=== PATIENT | female | born 1975 | race Caucasian/White ===

== ENCOUNTER 2017-02-25 05:32 | Observation (INO) | payer BC ==
[~2017-02-25] VITALS: Ht 165.1 cm; Wt 58.5 kg
--- NOTE | ~2017-02-25 | OR ---
ADMIT: 02/25/2017 RM/LOC: 630 [facility] MR#: [id number] [address] [address] OPAL MCALLISTER [facility] [place] [address] Operative/Delivery Room Report SEX: F AGE: 41 : 1975 SURGERY DATE: 02/25/2017 SURGEON: Whitney Perdomo MD PREOPERATIVE DIAGNOSES: 1. Menorrhagia. 2. Anemia. 3. Uterine fibroids. POSTOPERATIVE DIAGNOSES: 1. Menorrhagia. 2. Anemia. 3. Uterine fibroids. PROCEDURE: Total laparoscopic hysterectomy, bilateral salpingectomy, and cystoscopy. DENTAL OFFICE MANAGER: Suzy Moy MD. ANESTHESIA: General endotracheal. COMPLICATIONS: None. ESTIMATED BLOOD LOSS: 100 mL. FLUIDS: Crystalloid. INDICATIONS: This is a 41-year-old female, 2, para 2, who was seen and evaluated in the office secondary to complaints of heavy periods and anemia for several years. We did review treatment options, and she did elect to proceed with definitive surgical management in the form of hysterectomy with bilateral salpingectomy. The risks, benefits, and alternatives were discussed with the patient prior to proceeding, and she agreed to proceed. FINDINGS: Normal-appearing uterus, tubes, and ovaries. Normal-appearing small and large bowel, normal-appearing appendix, normal-appearing liver edge. The gallbladder was not seen. PROCEDURE IN DETAIL: The patient was properly identified. Informed consent was obtained. She was then taken to the operating room, where general anesthesia was established. She was then placed in the dorsal lithotomy position and prepped and draped in the usual sterile fashion. A Latham catheter was inserted in the bladder. A bivalve speculum was used to visualize the cervix. The cervix was grasped with a single-tooth tenaculum. The cervix was then dilated to allow the Lab21are uterine manipulator to be advanced to the uterine fundus. The VCare was placed without any difficulty. The tenaculum and speculum were removed, and the cup of the VCare was then advanced up and around the cervix. Attention was then turned to the patient's abdomen. Marcaine 0.25% was injected at the umbilicus. A 5 mm skin incision ADMIT: 02/25/2017 RM/LOC: 630 [facility] MR#: [id number] [address] [place], [place] [address] [id number] [place] [address] Operative/Delivery Room Report SEX: F AGE: 41 : 1975 was made. The Veress needle was then advanced while tenting the abdominal wall. The opening intraabdominal pressure was noted to be 2 mmHg. The abdomen was then insufflated. The Veress needle was removed. A 5 mm trocar was then advanced while tenting the abdominal wall. Intraabdominal placement was confirmed with the laparoscope. The patient was placed in Trendelenburg and a second 5 mm trocar was placed in the left lower quadrant. This was done under direct visualization without any difficulty. A third 5 mm trocar was then placed in the right lower quadrant under direct visualization without any difficulty. The right fallopian tube was grasped. Using the THUNDERBEAT instrument, it was sealed and transected from its attachments. The utero- ovarian ligament was then sealed and transected followed by the round ligament. The anterior leaf of the broad ligament was then opened towards the midline creating a bladder flap. The posterior leaf of the broad ligament was then opened posteriorly. At this time, the uterine artery was identified and sealed. Attention was then turned to the patient's left side. The fallopian tube was then sealed and transected from its attachments followed by the utero- ovarian ligament and the round ligament. The anterior leaf of the broad ligament was then opened towards the midline. The posterior leaf of the broad ligament was then opened posteriorly. Uterine artery was identified, sealed and transected. At this time, attention was turned back to the right side. The right uterine artery was then sealed and transected. The tissues around the cervix were then thinned. The posterior cul-de-sac was then entered. The VCare manipulator was identified, and the incision was then carried circumferentially around the cervix. The uterus, cervix, and bilateral tubes were then removed from the vagina. A wet laparotomy sponge placed within a sterile glove was placed in the vagina to help maintain pneumoperitoneum. The vaginal cuff was then closed with an 0 Vicryl Quill suture. The pelvis was then copiously irrigated. All of the pedicles were noted to be hemostatic. The right lower quadrant trocar which was a 5 mm did need to be replaced with a 12 mm port to allow us to use the Quill suture. The fascia from this port was closed with a single stitch of 0 Vicryl. The other trocars were removed. The skin incisions were closed with 3-0 Vicryl. Steri-Strips and OpSite were placed. At this time, the Latham catheter was removed from the bladder. The cystoscope was advanced into the bladder. The bladder was noted to be intact. Both ureters were identified and noted to be effluxing clear yellow urine. The bladder was then drained, and the cystoscope was removed. The patient tolerated the procedure well. Sponge, lap, needle, and instrument counts were correct. The patient was taken to the recovery room in stable condition. Whitney Perdomo MD/ matt JOB #: [id number] CC: Whitney Perdomo, Attending Physician FAMILY PHYSICIAN, Family Physician
--- NOTE | 2017-02-26 06:08 | NUR ---
4412- LAB CALLED. NOTIFIED NURSE PT HGB 6.0, WAS 7.3 ON ADMIT YESTERDAY. PT'S VITAL SIGNS- T 98.0, P 71, R 16, BP 96/59 (71), O2 97%. PT REPORTS DIZZINESS, LIGHTHEADED, TIRED, AND WEAKNESS. DR. JOHNSON NOTIFIED. NEW ORDERS RECEIVED.
[2017-02-28] MEDS ORDERED: PERCOCET 5 DPS1 TAB PO (12:12)
[2017-02-28] MEDS ORDERED: MOTRIN-DPS800 MG PO (12:12)
[2017-02-28] MEDS ORDERED: IRON325 M1 PO (12:13)
--- NOTE | 2017-03-28 12:34 | HP ---
ADMIT: 02/25/2017 RM/LOC: [facility] MR#: [id number] [id number] [place], [place] [address] OPAL MCALLISTER [address] [place] [address] Pre-OP History and Physical SEX: F AGE: 41 : 1975 DATE OF SERVICE: CHIEF COMPLAINT: Heavy periods, anemia, and uterine fibroid. HISTORY OF PRESENT ILLNESS: This is a 41-year-old female, 2, para 2, who has had complaints of heavy periods and anemia since 2008. She was initially seen by me in 2014 for an annual exam. At that time, she did report heavy regular periods and pelvic pain. She did have a pelvic ultrasound at that time demonstrating a normal-appearing uterus measuring 9.1 x 4.6 cm with a 2 mm endometrial stripe. The ovaries appeared normal. We did discuss treatment options at that time, but she was considering a tubal reversal, so she did not elect to do anything further. She followed up at the beginning of this year again with complaints of persistent heavy periods and anemia. Her hemoglobin at that time was 11.2. I did repeat an ultrasound in the office and at that time noticed a small 2 cm fibroid. Uterus was otherwise normal in appearance. Given she continued to complain of heavy periods, painful periods, and passing clots at the time of her periods, I did encourage her to proceed with an endometrial biopsy. She did do this in November of 2016. Pathology did demonstrate proliferative phase endometrium with glandular and stromal breakdown. She has had a normal Pap with a negative HPV test in November of 2014. She did have a normal TSH in November of 2014. At this time, she would like to proceed with definitive surgical management for her heavy and painful periods as well as her chronic anemia. She has additional complaints of urinary frequency, urgency, and occasional incontinence. PAST MEDICAL HISTORY: Significant for anemia. She denies hypertension, diabetes, asthma, or kidney or thyroid disease. PAST SURGICAL HISTORY: x2 and tubal ligation in 2005. SOCIAL HISTORY: She does have a significant other and lives at home with her significant other and her 2 children. She denies tobacco, alcohol, or drug use. ALLERGIES: NO KNOWN DRUG ALLERGIES. CURRENT MEDICATIONS: Bactrim. REVIEW OF SYSTEMS: GENERAL: She denies any recent weight gain, weight loss, fevers, or chills. HEENT: She denies headaches, vision changes, nasal congestion, or sore throat. NECK: She denies neck pain or stiffness. RESPIRATORY: She denies difficulty breathing or coughing. CARDIOVASCULAR: She denies palpitations, chest pain, or shortness of breath. GASTROINTESTINAL: She denies abdominal pain, diarrhea, constipation, or blood in her stools. FEMALE GENITOURINARY: She does have complaints of urinary frequency, dysuria, and urgency as well as occasional leaking urine. She additionally has complaints of heavy and painful periods as per HPI. ADMIT: 02/25/2017 RM/LOC: [facility] MR#: [id number] [address] [place] [id number] OPAL MCALLISTER [address] [place] [address] Pre-OP History and Physical SEX: F AGE: 41 : 1975 MUSCULOSKELETAL: She denies joint pain, muscle pain, or back pain. NEUROLOGIC: She denies dizziness or weakness in her extremities. ENDOCRINE: She denies any history of thyroid disorders. HEMATOLOGIC: She does have a history of anemia. She denies history of bleeding disorders, blood clots, or prolonged or spontaneous bleeding. PHYSICAL EXAMINATION: VITAL SIGNS: Her height is 64.5 inches, weight 136 pounds, body mass index is 23 blood pressure is 92/64, and she is afebrile. Her other vital signs are stable. GENERAL: This is a pleasant female, in no acute distress. HEENT: Head is normocephalic and atraumatic. Pupils are equal, round, react to light and accommodation. Extraocular muscles are intact. NECK: Supple. HEART: Regular rate and rhythm. LUNGS: Clear bilaterally. ABDOMEN: Soft, nontender, and nondistended. EXTREMITIES: Nontender. PELVIC: She has normal female external genitalia. Bartholin, urethral, and [place] glands are normal. The vulva and vagina are normal. The uterus is anteverted and mobile. There are no palpable adnexal masses. IMPRESSION: This is a 41-year-old female, 2, para 2, with menorrhagia, anemia, and a small uterine fibroid. PLAN: At this time, we do plan to proceed with definitive surgical management with hysterectomy. We have reviewed the risks, benefits, and alternatives to hysterectomy including, but not limited to the risks for bleeding, infection, potential for injury to the bowel, bladder, major vessels, or other nearby organs requiring repair. We have also discussed the potential risks of general anesthesia including myocardial infarction, stroke, and . We have reviewed options of ovarian conservation versus removal of her ovaries. We have discussed the lifetime risk of ovarian cancer is approximately 1 in 70 as well as a lifetime risk of needing another surgery to remove her ovaries at a later time is approximately 1 in 20. She would like to keep her ovaries if they do appear normal; however, we will proceed with removal of both of her fallopian tubes. She has very little descensus on pelvic exam; therefore, I did recommend we start with a laparoscopic approach. If we are unable to complete this as a laparoscopic hysterectomy, we will then convert to an abdominal hysterectomy if needed. We additionally discussed the option of placing a transobturator sling at the time of her surgery. We reviewed that this is a mesh insert and that would remain inside her. We discussed the procedure as well as the risks and benefits, including but not limited to the risks for bleeding, infection, potential of migration of the mesh as well as difficulty emptying her bladder after surgery. Given her findings on exam, I ADMIT: 02/25/2017 RM/LOC: [facility] MR#: [id number] [address] [place] [address] [address] [place], [place] [address] OPAL MCALLISTER[address] [place] [address] Pre-OP History and Physical SEX: F AGE: 41 : 1975 explained that I did not feel she would benefit from an anterior repair at this time. We also discussed the alternatives of not placing a sling at this time and rather after surgery proceeding with pelvic floor physical therapy. If she does not seem to improve after the pelvic floor physical therapy, then she can certainly have the sling placed at a later date. After discussion, she would like to wait to have the sling placed, and we will proceed with physical therapy after surgery and decide on the sling at a later time. She did have signs of urinary tract infection on her UA at the time of her preoperative visit. She was started on Bactrim and will continue this for a total of 5 days. All of her questions have been answered, and she does agree to proceed. We will therefore proceed with a total laparoscopic hysterectomy, bilateral salpingectomy, and possible abdominal hysterectomy if needed. Whitney Perdomo MD/ matt JOB #: [id number] CC: Whitney Perdomo, Attending Physician UNKNOWN, Family Physician
--- NOTE | 2017-04-03 12:44 | DS ---
ADMIT: 02/25/2017 RM/LOC: 630 [facility] MR#: [id number] [address] [address] OPAL MCALLISTER [facility] [place] [address] General Discharge Summary SEX: F AGE: 41 : 1975 ADMISSION DATE: 02/25/2017 DISCHARGE DATE: 02/27/2017 PRIMARY DIAGNOSES: 1. Status post total laparoscopic hysterectomy with bilateral salpingectomy secondary to menorrhagia, anemia, and uterine fibroids. 2. Chronic anemia exacerbated by acute blood loss anemia. PROCEDURES PERFORMED: On 02/25/2017, laparoscopic hysterectomy with bilateral salpingectomy. HOSPITAL COURSE: This is a 41-year-old female, 2, para 2, who was seen and evaluated in the office prior to surgery secondary to complaints of heavy periods and anemia. She did elect to undergo surgical management for her bleeding and anemia. On 02/25/2017, she underwent total laparoscopic hysterectomy with bilateral salpingectomy. Her preoperative hemoglobin was noted to be 7.3. She did undergo the procedure without any complications. Estimated blood loss for the procedure was 100 mL. Postoperatively, she did well. She was not able to void on postoperative day 0; therefore, the Latham catheter was replaced. On the morning of postoperative day #1, her hemoglobin was noted to be decreased to 6. She was counseled on the risks and benefits of a blood transfusion and did agree to this. She received 1 unit of packed red blood cells. Her Latham catheter was discontinued on postoperative day #1, and she was able to void without any difficulty. By the morning of postoperative day #2, she was able to ambulate, void, and tolerate a regular diet without any difficulty. She was deemed stable for discharge at that point and dismissed to home. DISCHARGE INSTRUCTIONS: She was asked to call with any signs or symptoms of infection including a temperature greater than 100.4 degrees, vaginal bleeding greater than 1 pad an hour, erythema, or drainage of her abdominal incisions or any increasing nausea, vomiting, or abdominal pain. She was dismissed on Motrin 800 mg 1 p.o. q.8 hours p.r.n. pain #20 and Percocet 5/325 mg 1 to 2 p.o. q.4 to 6 hours p.r.n. pain #20. She was also placed on ferrous sulfate 325 mg 1 p.o. b.i.d. She was instructed to follow up in 2 weeks for a postoperative check. CONDITION ON DISCHARGE: Stable. DISPOSITION: The patient was dismissed to home. Whitney Perdomo MD/ matt JOB #: [id number] CC: Whitney Perdomo MD, Attending Physician NO FAMILY PHYSICIAN, Family Physician
== END 2017-02-27 10:35 | disposition home or self-care (01) ==
LOC: WOR 05:32 → 6PED 11:45 → WOR 11:45 → 6PED 02-26 10:00
PROVIDERS: ADMIT Obstetrics & Gynecology
PROC: 0UTC4ZZ Resection of Cervix, Percutaneous Endoscopic Approach (ICD-10-PCS; principal; 2017-02-25)
PROC: 0UT74ZZ Resection of Bilateral Fallopian Tubes, Percutaneous Endoscopic Approach (ICD-10-PCS; principal; 2017-02-25)
PROC: 0UT94ZZ Resection of Uterus, Percutaneous Endoscopic Approach (ICD-10-PCS; principal; 2017-02-25)
DX: N72 Inflammatory disease of cervix uteri (principal); D25.9 Leiomyoma of uterus, unspecified; N92.0 Excessive and frequent menstruation with regular cycle; N83.8 Other noninflammatory disorders of ovary, fallopian tube and broad ligament; D64.9 Anemia, unspecified; Z98.890 Other specified postprocedural states